=== PATIENT | female | born 1960 | race Caucasian/White ===

== ENCOUNTER 2020-12-13 17:11 | Emergency (ER) | payer MEDICAID, OTHER ==
[~2020-12-13] VITALS: Ht 172.7 cm; Wt 143.3 kg
[2020-12-13 17:18] VITALS: BP 155/93
[2020-12-13 17:35] LABS: Urine WBC None Seen /hpf (0 - 5)
[2020-12-13 17:42] LABS: Urine Bacteria NONE SEEN /hpf (None Seen); Urine Blood Negative /uL (Negative); Urine Specific Gravity 1.012 (1.001-1.035)
[2020-12-13 18:53] LABS: Basophils # (auto) 0.1 10 ^3/uL (0-0.2); Lymphocytes % (auto) 29.2 % (10.0-50.0); Monocytes # (auto) 0.7 10 ^3/uL (0-1.3); Red Cell Distribution Width 13.5 % (11.8-14.3)
[2020-12-13 19:03] LABS: Albumin 3.8 g/dL (3.4-5.0); Anion Gap 8 (5-15); Blood Urea Nitrogen 11 mg/dL (7-18); Calcium 9.4 mg/dL (8.5-10.1); Carbon Dioxide 28 mmol/L (21-32); Chloride 105 mmol/L (98-107); Glucose 92 mg/dL (74-106); Potassium 4.4 mmol/L (3.5-5.1); Sodium 141 mmol/L (136-145)
[2020-12-13 19:05] LABS: Basophils % (auto) 0.6 % (0.0-2.0); Eosinophils # (auto) 0.3 10 ^3/uL (0-0.8); Eosinophils % (auto) 2.6 % (0.0-7.0); Hematocrit 44.9 % (36.0-46.0); Hemoglobin 15.3 g/dL (12.2-16.2); Lymphocytes # (auto) 3.2 10 ^3/uL (0.4-5.4); Mean Corpuscular Hemoglobin 30.6 pg (28.0-32.0); Mean Corpuscular Hgb Conc. 34.1 g/dL (32.0-36.0); Mean Corpuscular Volume 89.5 fL (80.0-100.0); Monocytes % (auto) 6.7 % (0.0-12.0); Neutrophils # (auto) 6.7 10 ^3/uL (1.6-8.6); Neutrophils % (auto) 60.9 % (37.0-80.0); Nucleated Red Blood Cells % 0.2 %; Platelet Count (auto) 223 10^3/uL (140-450); Red Blood Cells 5.02 10^6/uL (4.0-5.20); White Blood Cell 10.9 10^3/uL (4.4-10.8)
[2020-12-13 19:06] LABS: Alanine Aminotransferase 29 U/L (13-56); Aspartate Aminotransferase 18 U/L (15-37); BUN/Creatinine Ratio 12.8; GFR African American 87 mL/min; GFR Non-African American 72 mL/min
[2020-12-13 19:10] LABS: Alkaline Phosphatase 80 U/L (45-117); Bilirubin, Total 0.4 mg/dL (0.2-1.0); Total Protein 7.3 g/dL (6.4-8.2)
== END 2020-12-13 20:30 | disposition left against medical advice (07) ==
LOC: ER 17:13
DX: I10 Essential (primary) hypertension (principal); R07.9 Chest pain, unspecified; J45.909 Unspecified asthma, uncomplicated; E78.5 Hyperlipidemia, unspecified; Z87.891 Personal history of nicotine dependence; Z88.1 Allergy status to other antibiotic agents
CPT/HCPCS: 36415; 71045; 80053; 81001; 84484; 85025; 93005

== ENCOUNTER 2021-06-08 14:25 | Emergency (ER) | payer MEDICAID ==
[~2021-06-08] VITALS: Ht 172.7 cm; Wt 140.6 kg
[2021-06-08 14:57] VITALS: BP 138/81
[2021-06-08] MEDS ORDERED: KETOROLAC TROMETH 60MG/2ML VIAL IM ONE (17:15)
== END 2021-06-08 17:49 | disposition home or self-care (01) ==
LOC: ER 14:25
DX: M77.8 Other enthesopathies, not elsewhere classified (principal); I10 Essential (primary) hypertension; J44.9 Chronic obstructive pulmonary disease, unspecified; E78.5 Hyperlipidemia, unspecified; Z87.891 Personal history of nicotine dependence; Z88.1 Allergy status to other antibiotic agents; Z88.8 Allergy status to other drugs, medicaments and biological substances
CPT/HCPCS: 73060; 73090; 93971; 96372; 99284; J1885

== ENCOUNTER 2022-11-13 14:01 | Emergency (ER) | payer MEDICAID ==
[~2022-11-13] VITALS: Ht 172.7 cm; Wt 140.0 kg
[2022-11-13 14:35] LABS: Basophils # (auto) 0.1 10 ^3/uL (0-0.2); Basophils % (auto) 0.9 % (0.0-2.0); Eosinophils # (auto) 0.1 10 ^3/uL (0-0.8); Eosinophils % (auto) 1.3 % (0.0-7.0); Hematocrit 43.2 % (36.0-46.0); Hemoglobin 14.5 g/dL (12.2-16.2); Lymphocytes # (auto) 3.1 10 ^3/uL (0.4-5.4); Lymphocytes % (auto) 28.5 % (10.0-50.0); Mean Corpuscular Hemoglobin 29.7 pg (28.0-32.0); Mean Corpuscular Hgb Conc. 33.6 g/dL (32.0-36.0); Mean Corpuscular Volume 88.5 fL (80.0-100.0); Monocytes # (auto) 0.8 10 ^3/uL (0-1.3); Monocytes % (auto) 6.8 % (0.0-12.0); Neutrophils # (auto) 6.9 10 ^3/uL (1.6-8.6); Neutrophils % (auto) 62.5 % (37.0-80.0); Nucleated Red Blood Cells % 0.1 %; Red Blood Cells 4.88 10^6/uL (4.0-5.20); Red Cell Distribution Width 13.8 % (11.8-14.3)
[2022-11-13 15:28] LABS: Albumin 3.7 g/dL (3.4-5.0); Calcium 9.2 mg/dL (8.5-10.1); Potassium 4.4 mmol/L (3.5-5.1)
[2022-11-13] MEDS ORDERED: NITROGLYCERIN 0.4 MG SL TAB SL ONE (15:30)
[2022-11-13] MEDS ORDERED: ASPirin 325 MG TAB PO ONE (15:30)
[2022-11-13 15:31] LABS: Bilirubin, Total 0.6 mg/dL (0.2-1.0); Total Protein 6.8 g/dL (6.4-8.2)
[2022-11-13 18:42] VITALS: BP 134/67
== END 2022-11-13 18:45 | disposition home or self-care (01) ==
LOC: ER 14:01
DX: R07.89 Other chest pain (principal); I10 Essential (primary) hypertension; E11.9 Type 2 diabetes mellitus without complications; E78.5 Hyperlipidemia, unspecified; J44.9 Chronic obstructive pulmonary disease, unspecified; Z90.710 Acquired absence of both cervix and uterus; Z87.891 Personal history of nicotine dependence; Z88.1 Allergy status to other antibiotic agents; Z88.7 Allergy status to serum and vaccine
CPT/HCPCS: 36415; 71045; 80053; 84484; 85025; 93005

== ENCOUNTER 2023-04-05 07:19 | Inpatient (IN) | payer MEDICAID ==
[~2023-04-05] VITALS: Ht 172.7 cm; Wt 135.0 kg
[2023-04-05 08:00] LABS: Basophils # (auto) 0.1 10 ^3/uL (0-0.2); Basophils % (auto) 0.3 % (0.0-2.0); Eosinophils # (auto) 0.1 10 ^3/uL (0-0.8); Eosinophils % (auto) 0.3 % (0.0-7.0); Hematocrit 46.6 % (36.0-46.0); Hemoglobin 15.5 g/dL (12.2-16.2); Lymphocytes # (auto) 3.5 10 ^3/uL (0.4-5.4); Lymphocytes % (auto) 15.9 % (10.0-50.0); Mean Corpuscular Hemoglobin 29.6 pg (28.0-32.0); Mean Corpuscular Hgb Conc. 33.3 g/dL (32.0-36.0); Monocytes # (auto) 1.6 10 ^3/uL (0-1.3); Neutrophils % (auto) 76.5 % (37.0-80.0); Nucleated Red Blood Cells % 0.1 %; Red Blood Cells 5.24 10^6/uL (4.0-5.20); Red Cell Distribution Width 13.9 % (11.8-14.3); White Blood Cell 22.2 10^3/uL (4.4-10.8)
[2023-04-05] MEDS ORDERED: SODIUM CHLORIDE 0.9% 1,000 ML IV ONE ×2 (08:30)
[2023-04-05] MEDS ORDERED: MORPHINE SULFATE 4 MG/ML SYR/VIAL IV ONE (08:30)
[2023-04-05] MEDS ORDERED: ONDANSETRON HCL 4 MG/2 ML VIAL IV ONE (08:30)
[2023-04-05] MEDS ORDERED: PIPERACILLIN-TAZOB 3.375GM 100 ML IV ONE (08:30)
[2023-04-05 09:41] LABS: Potassium 3.5 mmol/L (3.5-5.1)
[2023-04-05 09:53] LABS: Albumin 3.9 g/dL (3.4-5.0); BUN/Creatinine Ratio 13.4 (10.0-20.0); Bilirubin, Total 1.4 mg/dL (0.2-1.0); Total Protein 6.9 g/dL (6.4-8.2)
[2023-04-05] MEDS ORDERED: DEXTROSE (50%) 50ML SYRG IV PRN (10:45)
[2023-04-05] MEDS ORDERED: POTASSIUM CHL 20MEQ/100ML 100 ML IV ONE (10:45)
[2023-04-05] MEDS ORDERED: ACETAMINOPHEN 325 MG TAB PO PRN (10:45)
[2023-04-05] MEDS ORDERED: FURO40TA4 PO (11:24)
[2023-04-05] MEDS ORDERED: SIMV20TA20 PO (11:24)
[2023-04-05] MEDS ORDERED: LISI30TA8 PO (11:24)
[2023-04-05] MEDS ORDERED: HYDR25TA5 PO (11:24)
[2023-04-05] MEDS ORDERED: POTA8TAB38 PO (11:24)
[2023-04-05] MEDS ORDERED: PANTOPRAZOLE 40 MG/10 ML VIAL INJ IV ONE (11:30)
[2023-04-05] MEDS ORDERED: NICOTINE 7MG/24HR TOPICAL PATCH TD ONE (11:30)
[2023-04-05] MEDS: ONDANSETRON HCL 4 MG/2 ML VIAL IV PRN (11:43)
[2023-04-05] MEDS: MORPHINE SULFATE INJ 2 MG/ml SYRG IV PRN ×3 (11:44→21:02)
[2023-04-05] MEDS ORDERED: IPRATROPIUM BROM 0.5 MG/2.5ML INH SOL NEB PRN (11:45)
[2023-04-05] MEDS ORDERED: ALBUTEROL SULF 2.5 MG/0.5ML(0.5%) NEB SOLN NEB PRN (11:45)
[2023-04-05] MEDS: LACTATED RINGER'S 1,000 ML IV SCH (11:46)
[2023-04-05] MEDS: ACCU-CHEK COMFORT CURVE STRIP VI SCH ×2 (12:00→17:54)
[2023-04-05 12:12] LABS: INR 1.01 (0.9-1.15); Partial Thromboplastin Time 27.5 sec (24.6-33.4)
[2023-04-05 12:19] LABS: Cholesterol 128 mg/dL (< 200)
[2023-04-05 12:22] LABS: HDL Cholesterol 34 mg/dL (40-59); LDL Cholesterol 95 mg/dL (< 100); Triglycerides 112 mg/dL (< 150)
[2023-04-05 13:06] VITALS: BP 178/91
[2023-04-05] MEDS ORDERED: HYDROmorphone HCL 2 MG/ML VL/or syr IV ONE (14:00)
[2023-04-05] MEDS: InsuLIN REG 1unit/0.01ml Soln (100units/ml) SC SCH ×2 (14:04→18:08)
[2023-04-05 15:54] VITALS: BP 156/89
[2023-04-05] MEDS: PIPERACILLIN-TAZOB 3.375GM 100 ML IV SCH ×2 (15:54→21:03)
[2023-04-05 16:45] VITALS: BP 115/89
[2023-04-05] MEDS: HYDROcodone-ACET 5/325MG TAB PO PRN (17:54)
[2023-04-05] MEDS: PRAVASTATIN SODIUM 20 MG TAB PO SCH ×2 (21:03→21:07)
[2023-04-05 22:00] VITALS: BP 163/87
[2023-04-06] MEDS: LACTATED RINGER'S 1,000 ML IV SCH (00:05)
[2023-04-06] MEDS: hydrALAZINE HCL 20 MG/ML VL IV PRN (02:39)
[2023-04-06] MEDS: MORPHINE SULFATE INJ 2 MG/ml SYRG IV PRN ×3 (02:39→11:17)
[2023-04-06] MEDS: ONDANSETRON HCL 4 MG/2 ML VIAL IV PRN ×2 (02:58→06:33)
[2023-04-06] MEDS: PIPERACILLIN-TAZOB 3.375GM 100 ML IV SCH ×4 (03:57→22:00)
[2023-04-06 04:47] LABS: Urine Amorphous Crystal FEW /hpf (None Seen); Urine Bacteria FEW /hpf (None Seen); Urine WBC 8 /hpf (0 - 5); Urine WBC Clumps PRESENT /hpf (None Seen)
[2023-04-06 04:49] LABS: Urine Blood Normal /uL (Negative)
[2023-04-06 05:00] VITALS: BP 147/85
[2023-04-06] MEDS: InsuLIN REG 1unit/0.01ml Soln (100units/ml) SC SCH ×5 (06:00→21:58)
[2023-04-06] MEDS: ACCU-CHEK COMFORT CURVE STRIP VI SCH ×4 (06:19→18:00)
[2023-04-06] MEDS: HCTZ 25 MG TAB PO SCH (06:21)
[2023-04-06 06:55] LABS: Hematocrit 46.8 % (36.0-46.0); Hemoglobin 15.5 g/dL (12.2-16.2); Mean Corpuscular Hemoglobin 29.4 pg (28.0-32.0); Mean Corpuscular Hgb Conc. 33.2 g/dL (32.0-36.0); Mean Corpuscular Volume 88.4 fL (80.0-100.0); Red Blood Cells 5.29 10^6/uL (4.0-5.20); White Blood Cell 28.2 10^3/uL (4.4-10.8)
[2023-04-06 07:02] LABS: Basophils % (manual) 0 (0.0-2.0); Blast Cells 0; Eosinophils % (manual) 0 (0-7); Metamyelocytes % 0; Myelocytes % 0; Promyelocytes % 0; Reactive Lymphocytes 0
[2023-04-06 07:11] LABS: Albumin 3.4 g/dL (3.4-5.0); Calcium 8.4 mg/dL (8.5-10.1); Potassium 3.9 mmol/L (3.5-5.1)
[2023-04-06 07:16] LABS: BUN/Creatinine Ratio 17.3 (10.0-20.0); Bilirubin, Total 1.2 mg/dL (0.2-1.0); Total Protein 6.6 g/dL (6.4-8.2)
[2023-04-06 08:05] LABS: Band Neutrophils % (manual) 1; Lymphocytes % (manual) 10 (10.0-50.0); Monocytes % (manual) 5 (0-12)
[2023-04-06 09:54] VITALS: BP 150/91
[2023-04-06] MEDS: FUROSEMIDE 40 MG TAB PO SCH (10:00)
[2023-04-06] MEDS: LISINOPRIL 10 MG TAB PO SCH (10:00)
[2023-04-06] MEDS: POTASSIUM CHLORIDE 8 MEQ TAB PO SCH (10:00)
[2023-04-06] MEDS: NICOTINE 7MG/24HR TOPICAL PATCH TD SCH (10:00)
[2023-04-06] MEDS ORDERED: PATIENTS OWN MEDICATION (Simvastatin 1 TAB) PO SCH (10:00)
[2023-04-06] MEDS ORDERED: PATIENTS OWN MEDICATION (Lisinopril 1 TAB) PO SCH (10:00)
[2023-04-06] MEDS: PANTOPRAZOLE 40 MG/10 ML VIAL INJ IV SCH (11:16)
[2023-04-06] MEDS ORDERED: LACTATED RINGER'S 1,000 ML IV SCH (11:45)
[2023-04-06 12:32] LABS: Alcohol, Urine < 3.0 mg/dL (0-10); Amphetamine Screen, Urine NEGATIVE (NEGATIVE); Barbiturate Scree,Urine NEGATIVE (NEGATIVE); Cannabinoid Screen, Urine NEGATIVE (NEGATIVE)
[2023-04-06 12:41] LABS: Benzodiazephine Screen, Urine NEGATIVE (NEGATIVE); Cocaine Screen, Urine NEGATIVE (NEGATIVE); Opiate Scree,Urine POSITIVE (NEGATIVE); Phencyclidine Screen, Urine NEGATIVE (NEGATIVE)
[2023-04-06 13:00] VITALS: BP 151/86
[2023-04-06 16:49] VITALS: BP 150/80
[2023-04-06] MEDS: MORPHINE SULFATE 4 MG/ML SYR/VIAL IV PRN (18:30)
[2023-04-06] MEDS: PRAVASTATIN SODIUM 20 MG TAB PO SCH ×2 (21:30→21:33)
[2023-04-06 22:00] VITALS: BP 137/64
[2023-04-07] MEDS: MORPHINE SULFATE 4 MG/ML SYR/VIAL IV PRN ×3 (01:13→17:18)
[2023-04-07] MEDS: LACTATED RINGER'S 1,000 ML IV SCH ×4 (01:20→21:20)
[2023-04-07] MEDS: PIPERACILLIN-TAZOB 3.375GM 100 ML IV SCH (04:00)
[2023-04-07 05:00] VITALS: BP 137/81
[2023-04-07] MEDS: ACCU-CHEK COMFORT CURVE STRIP VI SCH ×4 (06:00→17:46)
[2023-04-07] MEDS: InsuLIN REG 1unit/0.01ml Soln (100units/ml) SC SCH ×4 (06:00→22:18)
[2023-04-07] MEDS: HCTZ 25 MG TAB PO SCH ×2 (06:18→06:19)
[2023-04-07 06:39] LABS: Hematocrit 44.2 % (36.0-46.0); Hemoglobin 15.3 g/dL (12.2-16.2); Mean Corpuscular Hemoglobin 30.4 pg (28.0-32.0); Mean Corpuscular Hgb Conc. 34.7 g/dL (32.0-36.0); Mean Corpuscular Volume 87.6 fL (80.0-100.0); Red Blood Cells 5.05 10^6/uL (4.0-5.20); Red Cell Distribution Width 14.3 % (11.8-14.3)
[2023-04-07 06:44] LABS: Calcium 8.2 mg/dL (8.5-10.1); Potassium 3.8 mmol/L (3.5-5.1)
[2023-04-07 06:48] LABS: BUN/Creatinine Ratio 17.6 (10.0-20.0); Bilirubin, Total 1.9 mg/dL (0.2-1.0); Total Protein 6.3 g/dL (6.4-8.2)
[2023-04-07 07:08] LABS: White Blood Cell 30.9 10^3/uL (4.4-10.8)
[2023-04-07 07:09] LABS: Band Neutrophils % (manual) 0; Basophils % (manual) 0 (0.0-2.0); Blast Cells 0; Eosinophils % (manual) 0 (0-7); Metamyelocytes % 0; Myelocytes % 0; Promyelocytes % 0; Reactive Lymphocytes 0
[2023-04-07 08:17] LABS: Lymphocytes % (manual) 5 (10.0-50.0); Monocytes % (manual) 6 (0-12)
[2023-04-07 08:53] VITALS: BP 133/80
[2023-04-07] MEDS: LISINOPRIL 10 MG TAB PO SCH (09:35)
[2023-04-07] MEDS: POTASSIUM CHLORIDE 8 MEQ TAB PO SCH (09:36)
[2023-04-07] MEDS: FUROSEMIDE 40 MG TAB PO SCH (09:36)
[2023-04-07] MEDS: PANTOPRAZOLE 40 MG/10 ML VIAL INJ IV SCH (09:37)
[2023-04-07] MEDS: NICOTINE 7MG/24HR TOPICAL PATCH TD SCH (09:37)
[2023-04-07] MEDS: MEROPENEM 1GM IVPB 100 ML IV SCH ×2 (12:49→17:46)
[2023-04-07 13:09] VITALS: BP 132/89
[2023-04-07 17:12] VITALS: BP 136/89
[2023-04-07] MEDS: HYDROcodone-ACET 5/325MG TAB PO PRN (21:08)
[2023-04-07 22:00] VITALS: BP 153/87
[2023-04-07] MEDS: PRAVASTATIN SODIUM 20 MG TAB PO SCH (22:00)
[2023-04-08] MEDS: MEROPENEM 1GM IVPB 100 ML IV SCH ×3 (03:54→19:10)
[2023-04-08] MEDS: LACTATED RINGER'S 1,000 ML IV SCH ×3 (04:00→17:20)
[2023-04-08 05:00] VITALS: BP_SYST 117; BP_SYST 142; BP_DIAS 57; BP_DIAS 79
[2023-04-08] MEDS: InsuLIN REG 1unit/0.01ml Soln (100units/ml) SC SCH ×3 (06:00→18:00)
[2023-04-08 06:02] LABS: Hematocrit 42.1 % (36.0-46.0); Hemoglobin 14.5 g/dL (12.2-16.2); Mean Corpuscular Hemoglobin 30.2 pg (28.0-32.0); Mean Corpuscular Hgb Conc. 34.3 g/dL (32.0-36.0); Red Blood Cells 4.79 10^6/uL (4.0-5.20); Red Cell Distribution Width 13.7 % (11.8-14.3); White Blood Cell 28.6 10^3/uL (4.4-10.8)
[2023-04-08] MEDS: ACCU-CHEK COMFORT CURVE STRIP VI SCH ×4 (06:08→19:02)
[2023-04-08 06:19] LABS: Band Neutrophils % (manual) 0; Basophils % (manual) 0 (0.0-2.0); Blast Cells 0; Eosinophils % (manual) 0 (0-7); Metamyelocytes % 0; Myelocytes % 0; Promyelocytes % 0; Reactive Lymphocytes 0
[2023-04-08 06:26] LABS: Albumin 2.5 g/dL (3.4-5.0); Calcium 8.1 mg/dL (8.5-10.1); Potassium 3.7 mmol/L (3.5-5.1)
[2023-04-08] MEDS: hydrALAZINE HCL 20 MG/ML VL IV PRN (06:27)
[2023-04-08 06:30] LABS: BUN/Creatinine Ratio 18.1 (10.0-20.0); Bilirubin, Total 1.6 mg/dL (0.2-1.0); Total Protein 6.3 g/dL (6.4-8.2)
[2023-04-08] MEDS: HCTZ 25 MG TAB PO SCH (07:00)
[2023-04-08 08:20] VITALS: BP 133/72
[2023-04-08 08:33] LABS: Lymphocytes % (manual) 15 (10.0-50.0); Monocytes % (manual) 6 (0-12)
[2023-04-08 09:00] VITALS: BP 133/72
[2023-04-08] MEDS ORDERED: IOHEXOL 300 MG/ML 100ML BOTTLE IJ ONE (09:23)
[2023-04-08] MEDS: PANTOPRAZOLE 40 MG/10 ML VIAL INJ IV SCH (09:30)
[2023-04-08] MEDS: FUROSEMIDE 40 MG TAB PO SCH ×2 (09:31→09:37)
[2023-04-08] MEDS: POTASSIUM CHLORIDE 8 MEQ TAB PO SCH ×2 (09:31→09:37)
[2023-04-08] MEDS: LISINOPRIL 10 MG TAB PO SCH (09:32)
[2023-04-08] MEDS: ACETAMINOPHEN 325 MG TAB PO PRN (09:33)
[2023-04-08] MEDS: NICOTINE 7MG/24HR TOPICAL PATCH TD SCH ×2 (09:33→10:00)
[2023-04-08 17:00] VITALS: BP 157/81
[2023-04-08] MEDS: MORPHINE SULFATE 4 MG/ML SYR/VIAL IV PRN ×2 (17:04→23:21)
[2023-04-08] MEDS: ONDANSETRON HCL 4 MG/2 ML VIAL IV PRN (17:04)
[2023-04-08] MEDS: PRAVASTATIN SODIUM 20 MG TAB PO SCH ×2 (22:00→22:52)
[2023-04-08 22:57] VITALS: BP 157/84
[2023-04-09] MEDS: ACCU-CHEK COMFORT CURVE STRIP VI SCH ×4 (00:33→17:44)
[2023-04-09] MEDS: MEROPENEM 1GM IVPB 100 ML IV SCH ×3 (02:01→17:44)
[2023-04-09 05:00] VITALS: BP_SYST 131; BP_SYST 149; BP_DIAS 86; BP_DIAS 94
[2023-04-09] MEDS: InsuLIN REG 1unit/0.01ml Soln (100units/ml) SC SCH ×4 (05:57→17:43)
[2023-04-09] MEDS: HCTZ 25 MG TAB PO SCH (06:08)
[2023-04-09 08:00] VITALS: BP 142/75
[2023-04-09] MEDS: LACTATED RINGER'S 1,000 ML IV SCH ×4 (08:34→20:54)
[2023-04-09] MEDS: MORPHINE SULFATE 4 MG/ML SYR/VIAL IV PRN ×3 (08:35→22:39)
[2023-04-09] MEDS ORDERED: CLINIMIX PER PHARMACY 0 ML IV SCH (08:45)
[2023-04-09] MEDS: PANTOPRAZOLE 40 MG/10 ML VIAL INJ IV SCH (08:47)
[2023-04-09] MEDS: LISINOPRIL 10 MG TAB PO SCH (08:53)
[2023-04-09 09:04] VITALS: BP 153/82
[2023-04-09] MEDS: FUROSEMIDE 40 MG TAB PO SCH (09:07)
[2023-04-09] MEDS: NICOTINE 7MG/24HR TOPICAL PATCH TD SCH (09:08)
[2023-04-09 10:18] LABS: Basophils # (auto) 0 10 ^3/uL (0-0.2); Basophils % (auto) 0.2 % (0.0-2.0); Eosinophils # (auto) 0 10 ^3/uL (0-0.8); Eosinophils % (auto) 0.1 % (0.0-7.0); Hemoglobin 13.6 g/dL (12.2-16.2); Lymphocytes # (auto) 1.8 10 ^3/uL (0.4-5.4); Lymphocytes % (auto) 8.7 % (10.0-50.0); Mean Corpuscular Hemoglobin 29.4 pg (28.0-32.0); Mean Corpuscular Hgb Conc. 33.2 g/dL (32.0-36.0); Mean Corpuscular Volume 88.5 fL (80.0-100.0); Monocytes # (auto) 1.6 10 ^3/uL (0-1.3); Monocytes % (auto) 7.5 % (0.0-12.0); Neutrophils # (auto) 17.8 10 ^3/uL (1.6-8.6); Neutrophils % (auto) 83.5 % (37.0-80.0); Nucleated Red Blood Cells % 0.1 %; Red Blood Cells 4.64 10^6/uL (4.0-5.20); Red Cell Distribution Width 13.8 % (11.8-14.3); White Blood Cell 21.3 10^3/uL (4.4-10.8)
[2023-04-09 10:34] LABS: Albumin 2.2 g/dL (3.4-5.0); Calcium 7.6 mg/dL (8.5-10.1); Magnesium 2.2 mg/dL (1.6-2.6); Potassium 3.3 mmol/L (3.5-5.1)
[2023-04-09 10:37] LABS: BUN/Creatinine Ratio 22.8 (10.0-20.0); Bilirubin, Total 1.4 mg/dL (0.2-1.0); Phosphorus 2.4 mg/dL (2.5-4.90); Total Protein 5.8 g/dL (6.4-8.2)
[2023-04-09] MEDS: ACETAMINOPHEN 325 MG TAB PO PRN (11:19)
[2023-04-09] MEDS ORDERED: POTASSIUM PHOSPHATE 44 MEQ in D5W 5% 250 ML IV ONE (12:30)
[2023-04-09 12:54] VITALS: BP 142/75
[2023-04-09] MEDS: POTASSIUM CHLORIDE 8 MEQ TAB PO SCH (13:58)
[2023-04-09 17:00] VITALS: BP 137/78
[2023-04-09] MEDS: AMINO ACID INFUSION IN D10W 1,000 ML IV SCH (20:53)
[2023-04-09] MEDS: PRAVASTATIN SODIUM 20 MG TAB PO SCH (21:06)
[2023-04-09 22:00] VITALS: BP 150/88
[2023-04-10] MEDS: ACCU-CHEK COMFORT CURVE STRIP VI SCH ×5 (00:41→23:14)
[2023-04-10] MEDS: MEROPENEM 1GM IVPB 100 ML IV SCH ×3 (01:27→18:09)
[2023-04-10] MEDS: LACTATED RINGER'S 1,000 ML IV SCH ×3 (02:40→15:34)
[2023-04-10 05:00] VITALS: BP 133/79
[2023-04-10 06:06] LABS: Magnesium 2.1 mg/dL (1.6-2.6); Potassium 3.4 mmol/L (3.5-5.1)
[2023-04-10] MEDS: HCTZ 25 MG TAB PO SCH (06:06)
[2023-04-10] MEDS: InsuLIN REG 1unit/0.01ml Soln (100units/ml) SC SCH ×5 (06:06→23:14)
[2023-04-10 06:13] LABS: Albumin 2.1 g/dL (3.4-5.0); BUN/Creatinine Ratio 19.4 (10.0-20.0); Bilirubin, Total 1.4 mg/dL (0.2-1.0); Calcium 7.7 mg/dL (8.5-10.1); Phosphorus 1.9 mg/dL (2.5-4.90); Total Protein 5.5 g/dL (6.4-8.2)
[2023-04-10 09:00] VITALS: BP 133/87
[2023-04-10] MEDS: PANTOPRAZOLE 40 MG/10 ML VIAL INJ IV SCH (09:38)
[2023-04-10] MEDS: LISINOPRIL 10 MG TAB PO SCH (09:38)
[2023-04-10] MEDS: POTASSIUM CHLORIDE 8 MEQ TAB PO SCH (09:39)
[2023-04-10] MEDS: FUROSEMIDE 20 MG TAB PO SCH (09:40)
[2023-04-10] MEDS: NICOTINE 7MG/24HR TOPICAL PATCH TD SCH (09:40)
[2023-04-10] MEDS ORDERED: POTASSIUM PHOSPHATE 44 MEQ in D5W 5% 250 ML IV ONE (10:00)
[2023-04-10] MEDS: MORPHINE SULFATE 4 MG/ML SYR/VIAL IV PRN (12:17)
[2023-04-10 12:57] VITALS: BP_SYST 113; BP_SYST 129; BP_DIAS 72; BP_DIAS 83
[2023-04-10] MEDS: ACETAMINOPHEN 325 MG TAB PO PRN (15:39)
[2023-04-10 15:52] LABS: Basophils # (auto) 0 10 ^3/uL (0-0.2); Basophils % (auto) 0.2 % (0.0-2.0); Eosinophils # (auto) 0 10 ^3/uL (0-0.8); Eosinophils % (auto) 0.1 % (0.0-7.0); Hematocrit 41.6 % (36.0-46.0); Hemoglobin 13.8 g/dL (12.2-16.2); Lymphocytes # (auto) 1.9 10 ^3/uL (0.4-5.4); Lymphocytes % (auto) 9.5 % (10.0-50.0); Mean Corpuscular Hgb Conc. 33.3 g/dL (32.0-36.0); Mean Corpuscular Volume 89.9 fL (80.0-100.0); Monocytes # (auto) 1.9 10 ^3/uL (0-1.3); Monocytes % (auto) 9.5 % (0.0-12.0); Neutrophils % (auto) 80.7 % (37.0-80.0); Nucleated Red Blood Cells % 0.1 %; Red Blood Cells 4.62 10^6/uL (4.0-5.20); White Blood Cell 19.8 10^3/uL (4.4-10.8)
[2023-04-10 16:06] LABS: Albumin 1.9 g/dL (3.4-5.0); Calcium 7.7 mg/dL (8.5-10.1); Potassium 3.3 mmol/L (3.5-5.1)
[2023-04-10 16:09] LABS: BUN/Creatinine Ratio 17.7 (10.0-20.0); Bilirubin, Total 1.3 mg/dL (0.2-1.0); Total Protein 5.6 g/dL (6.4-8.2)
[2023-04-10 17:00] VITALS: BP 135/81
[2023-04-10] MEDS: AMINO ACID INFUSION IN D10W 1,000 ML IV SCH (19:53)
[2023-04-10] MEDS: PRAVASTATIN SODIUM 20 MG TAB PO SCH (21:04)
[2023-04-10 22:00] VITALS: BP 143/68
[2023-04-11] MEDS: MEROPENEM 1GM IVPB 100 ML IV SCH ×2 (01:34→10:24)
[2023-04-11] MEDS: LACTATED RINGER'S 1,000 ML IV SCH (04:53)
[2023-04-11 05:00] VITALS: BP 145/84
[2023-04-11] MEDS: InsuLIN REG 1unit/0.01ml Soln (100units/ml) SC SCH ×2 (06:00→12:23)
[2023-04-11] MEDS: ACCU-CHEK COMFORT CURVE STRIP VI SCH ×2 (06:07→12:21)
[2023-04-11 06:44] LABS: Basophils # (auto) 0.1 10 ^3/uL (0-0.2); Basophils % (auto) 0.3 % (0.0-2.0); Eosinophils # (auto) 0.1 10 ^3/uL (0-0.8); Eosinophils % (auto) 0.3 % (0.0-7.0); Hematocrit 39.2 % (36.0-46.0); Hemoglobin 13.3 g/dL (12.2-16.2); Lymphocytes # (auto) 1.8 10 ^3/uL (0.4-5.4); Lymphocytes % (auto) 9.6 % (10.0-50.0); Mean Corpuscular Hemoglobin 29.7 pg (28.0-32.0); Mean Corpuscular Hgb Conc. 33.9 g/dL (32.0-36.0); Mean Corpuscular Volume 87.6 fL (80.0-100.0); Monocytes # (auto) 1.7 10 ^3/uL (0-1.3); Monocytes % (auto) 9.2 % (0.0-12.0); Neutrophils # (auto) 15.2 10 ^3/uL (1.6-8.6); Neutrophils % (auto) 80.6 % (37.0-80.0); Potassium 3.2 mmol/L (3.5-5.1); Red Blood Cells 4.47 10^6/uL (4.0-5.20); Red Cell Distribution Width 13.5 % (11.8-14.3); White Blood Cell 18.8 10^3/uL (4.4-10.8)
[2023-04-11 06:47] LABS: Calcium 7.8 mg/dL (8.5-10.1); Magnesium 2.2 mg/dL (1.6-2.6); Phosphorus 1.9 mg/dL (2.5-4.90)
[2023-04-11] MEDS: HCTZ 25 MG TAB PO SCH (06:52)
[2023-04-11] MEDS: POTASSIUM CHL 20MEQ/100ML 100 ML IV SCH ×2 (08:55→11:18)
[2023-04-11 09:00] VITALS: BP 146/78
[2023-04-11] MEDS: NICOTINE 7MG/24HR TOPICAL PATCH TD SCH (10:00)
[2023-04-11] MEDS: LISINOPRIL 10 MG TAB PO SCH (10:00)
[2023-04-11] MEDS: POTASSIUM CHLORIDE 8 MEQ TAB PO SCH (10:00)
[2023-04-11] MEDS: FUROSEMIDE 20 MG TAB PO SCH (10:00)
[2023-04-11] MEDS: MORPHINE SULFATE 4 MG/ML SYR/VIAL IV PRN (10:15)
[2023-04-11] MEDS: PANTOPRAZOLE 40 MG/10 ML VIAL INJ IV SCH (10:23)
[2023-04-11] MEDS ORDERED: SODIUM PHOSPHATES 40 MEQ in D5W 5% 250 ML IV ONE (11:00)
[2023-04-11 13:00] VITALS: BP 145/78
== END 2023-04-11 17:25 | disposition left against medical advice (07) | DRG 720 ==
LOC: EDBD 07:19 → ER 07:19 → EDUNIT# 07:19 → CENTRAL 11:24
PROVIDERS: ADMIT Registered Nurse; ATTEND Family Medicine
PROC: 05HD33Z Insertion of Infusion Device into Right Cephalic Vein, Percutaneous Approach (ICD-10-PCS; principal; 2023-04-09)
PROC: B54MZZA Ultrasonography of Right Upper Extremity Veins, Guidance (ICD-10-PCS; 2023-04-09)
DX: A41.9 Sepsis, unspecified organism (principal); R65.21 Severe sepsis with septic shock; K85.10 Biliary acute pancreatitis without necrosis or infection; E66.01 Morbid (severe) obesity due to excess calories; F17.210 Nicotine dependence, cigarettes, uncomplicated; Z20.822 Contact with and (suspected) exposure to COVID-19; I10 Essential (primary) hypertension; J44.9 Chronic obstructive pulmonary disease, unspecified; N39.0 Urinary tract infection, site not specified; E86.0 Dehydration; Z53.29 Procedure and treatment not carried out because of patient's decision for other reasons; E78.00 Pure hypercholesterolemia, unspecified; Z90.710 Acquired absence of both cervix and uterus; Z88.7 Allergy status to serum and vaccine; Z88.1 Allergy status to other antibiotic agents; Z79.84 Long term (current) use of oral hypoglycemic drugs; Z79.899 Other long term (current) drug therapy; Z82.49 Family history of ischemic heart disease and other diseases of the circulatory system; Z68.42 Body mass index [BMI] 45.0-49.9, adult; E11.9 Type 2 diabetes mellitus without complications
CPT/HCPCS: 36415; 71045; 74176; 74177; 74181; 76705; 80053; 80061; 80069; 80307; 80320; 81001; 82150; 82962; 83036; 83605; 83690; 83735; 84100; 84443; 84478; 84484; 85007; 85025; 85027; 85610; 85730; 87040; 87081; 87426; 93005; 96365; 96366; 96375; C9113; G0378; J1815; J2185; J2405; J2543; J3480; J7060